=== PATIENT | female | born 1955 | race Caucasian/White ===

== ENCOUNTER 2021-04-20 11:09 | Outpatient (CLI) | payer MEDICARE, SELFPAY ==
--- NOTE | 2021-04-20 11:47 | ECG_ITS ---
Measurements Intervals [place] Rate: 81 P: 59 [place]: 208 QRS: 2 QRSD: 94 T: 51 QT: 343 QTc: 400 Interpretive Statements SINUS RHYTHM DELAYED PRECORDIAL R/S TRANSITION BORDERLINE ST-T WAVE ABNORMALITY- DIFFUSE LEADS BASELINE ARTIFACT- II, III BORDERLINE ECG Electronically Signed On 04-20-2021 13:27:58 CDT by Iam Dawn D.O.
[2021-04-20 11:49] LABS: Hematocrit 42.9 % (37.0-47.0); Hemoglobin 14.2 g/dL (12.0-15.0)
[2021-04-20 12:00] LABS: Albumin Level 4.6 g/dL (3.5-5.1); Creatine Kinase 85 U/L (30-135)
[2021-04-20 15:10] LABS: Estimated Glomerular Filt Rate > 60
== END 2021-04-20 11:10 | disposition home or self-care (01) ==
PROVIDERS: PCP Family Medicine; Visit Provider Orthopaedic Surgery
DX: M10.9 Gout, unspecified (principal); I10 Essential (primary) hypertension; E07.9 Disorder of thyroid, unspecified; M17.12 Unilateral primary osteoarthritis, left knee; Z01.818 Encounter for other preprocedural examination; R94.31 Abnormal electrocardiogram [ECG] [EKG]
CPT/HCPCS: 36415; 82040; 82550; 82565; 85014; 85018; 93005

== ENCOUNTER 2021-06-16 08:53 | Outpatient (CLI) | payer MEDICARE, SELFPAY ==
[2021-06-16 10:39] LABS: Basophils Absolute Auto 0.1 K/mm3 (0.0-0.1); Basophils Percent Auto 0.8 % (0.2-1.2); Eosinophils Absolute Auto 0.1 K/mm3 (0-0.3); Eosinophils Percent Auto 1.6 % (0-4.4); Hematocrit 46.1 % (37.0-47.0); Hemoglobin 15.4 g/dL (12.0-15.0); Immature Granulocyte Absolute 0.02 K/mm3 (0.00-0.031); Immature Granulocyte Percent A 0.3 % (0-0.5); Lymphocytes Absolute Auto 1.26 K/mm3 (0.9-3.2); Lymphocytes Percent Auto 17.3 % (18.3-44.2); Mean Corpuscular HGB Conc 33.4 g/dl (32-36); Mean Corpuscular Hemoglobin 30.1 pg (26-34); Mean Corpuscular Volume 90.2 fl (80-100); Mean Platelet Volume 10.9 fl (7.4-10.4); Monocytes Absolute Auto 0.6 K/mm3 (0.1-0.6); Monocytes Percent Auto 7.8 % (2.6-8.5); Neutrophils Absolute Auto 5.3 K/mm3 (1.3-6.7); Neutrophils Percent Auto 72.2 % (45.5-73.1); Platelet Count Result 221 k/mm3 (150-375); Red Blood Count 5.11 M/mm3 (4.2-5.4); Red Cell Distribution Width 12.2 % (11.5-14.5); White Blood Count 7.3 K/mm3 (4.5-10.0)
[2021-06-16 10:49] LABS: Albumin Level 4.9 g/dL (3.5-5.1)
[2021-06-16 10:51] LABS: Anion Gap 10 mmol/L (8-16); Blood Urea Nitrogen 29 mg/dL (7-17); Calcium 10.3 mg/dL (8.4-10.2); Carbon Dioxide 32 mmol/L (22-30); Chloride 100 mmol/L (98-107); Estimated Glomerular Filt Rate > 60; Glucose 98 mg/dL (65-110); Potassium 3.4 mmol/L (3.4-5.0); Sodium 142 mmol/L (137-145)
[2021-06-16 10:53] LABS: Hemoglobin A1C 5.4 % (<5.7)
[2021-06-16 10:54] LABS: Urine Cotinine NEGATIVE
== END 2021-06-16 08:54 | disposition home or self-care (01) ==
LOC: ANHSURGERY 08:57
PROVIDERS: Anesthesiology; PCP Family Medicine; Visit Provider Orthopaedic Surgery
DX: M17.12 Unilateral primary osteoarthritis, left knee (principal); Z01.818 Encounter for other preprocedural examination; Z51.81 Encounter for therapeutic drug level monitoring
CPT/HCPCS: 80048; 80307; 82040; 83036; 85025; 87081

== ENCOUNTER 2021-07-12 00:28 | Day surgery (SDC) | payer MEDICARE, SELFPAY ==
[2021-06-16 09:20] VITALS: BP 129/65; PULSE 72; RESP 18; TEMP 36.8; O2SAT 98; BMI 31.1
--- NOTE | 2021-07-11 16:18 | WPDANESPNB ---
Anes - Peripheral Nerve Block Date/Time: 07/11/21 16:18 I have discussed with the patient/family/POA the placement of a peripheral nerve block for post-operative pain management, including associated risks, benefits, complications, and side effects. Alternative methods of post-operative analgesia were detailed. Questions were solicited and answers provided to the satisfaction of the patient/family/POA. Time-Out: A pre-procedural Time-Out was completed immediately before starting the procedure and confirmed: Patient Identification, Site, Procedure, Patient Position and the Availability of Requisite Equipment. Clinical Indications: Acute post-operative pain management requested by the operative surgeon. Nerve Block Insertion Note Anes-nerve block: adductor canal left Patient position: supine Skin prep: chlorhexidine Needle: 22 gauge, stimulating, insulated echogenic needle. Needle length: 80 mm Technique: ultrasound Technique comment: in plane Injectate: bupivacaine 0.25% with epi 5 mcg/ml (30cc) Observations: tolerated well Complications: none Procedure start time:: 730 Procedure end time:: 735
--- NOTE | 2021-07-11 16:18 | WPDANESEPPF ---
Anes - Initial Pre Proc Eval Procedure: Operation Date: 07/12/21 07:30 Proposed Procedures p Left Total Knee Arthroplasty - Jc Marshall MD Date/Time: 07/11/21 16:18 Surgeon: Jc Marshall MD Pre Op Diagnosis: primary OA left knee Patient Data Age: 66 Gender: F Height: 1.68 m Weight: 87.6 kg Last Vital Signs Temp 36.8 C 06/16/21 09:20 Pulse 72 06/16/21 09:20 Resp 18 06/16/21 09:20 BP 129/65 06/16/21 09:20 Pulse Ox 98 06/16/21 09:20 Allergies Allergy/AdvReac Type Severity Reaction Status Date / Time povidone-iodine Allergy Mild RASH Verified 07/12/21 06:22 latex Allergy Unknown Rash Verified 07/12/21 06:22 Penicillins Allergy Unknown Rash Verified 07/12/21 06:22 pregabalin Allergy Unknown LEG Verified 07/12/21 06:22 SWELLING, RASH codeine Allergy Rash Verified 07/12/21 06:22 oxycodone AdvReac Unknown Nausea Verified 07/12/21 06:22 naproxen AdvReac Nausea Verified 07/12/21 06:22 IVORY BAR SOAP Allergy Rash Uncoded 07/12/21 06:22 HYDROCODONE BIT AdvReac Intermediate Nausea Uncoded 07/12/21 06:22 Home Medications Medication Instructions Recorded Confirmed Type allopurinol 300 mg tablet 600 mg PO DAILY 04/20/21 06/16/21 History cetirizine 10 mg tablet 10 mg PO DAILY 04/20/21 06/16/21 History furosemide 40 mg tablet 40 mg PO QAM 04/20/21 06/16/21 History metoprolol tartrate 100 mg tablet 100 mg PO QAM 04/20/21 07/12/21 History multivitamin 1 tablet PO DAILY 04/20/21 07/12/21 History omega 4-tfe-spj-fish oil 300 1 cap PO DAILY 04/20/21 07/12/21 History mg-1,000 mg capsule potassium chloride 20 mEq 40 meq PO BID 04/20/21 06/16/21 History tablet,extended release(part/cryst) triamterene 37.5 1 cap PO QAM 04/20/21 06/16/21 History mg-hydrochlorothiazide 25 mg capsule fenofibrate nanocrystallized 145 mg PO QAM 06/16/21 06/16/21 History levothyroxine 150 mcg PO HS 06/16/21 06/16/21 History liothyronine 5 mcg PO HS 06/16/21 06/16/21 History pravastatin 40 mg PO QAM 06/16/21 06/16/21 History semaglutide [Ozempic] 1 mg SUBCUT WEEKLY 06/16/21 06/16/21 History Patient hx anesthesia problems: none Family hx anesthesia problems: none Results Review: All pre-operative results and documents have been reviewed as part of the pre-operative evaluation. [facility] Past Medical History Medical History (Updated 07/11/21 @ 16:19 by Tuan Castillo MD) Blind Gout Hyperlipidemia Hypertension Macular degeneration Obesity Osteoarthritis of left knee CPPD Peripheral neuropathy Thyroid disease Surgical History Surgical History History of arthroscopy of left knee (~07/13/17) Partial Lateral Menisectomy History of carpal tunnel release (~06/2012) History of repair of rotator cuff (~03/2010) History of spinal fusion (~07/2012) Family History Family History Mother Hypertension Grandparent Hypertension Father Acute myocardial infarction, Onset Age: 62 Patient's father is Other Family history of arthritis Social History Social History Smoking status: Never smoker Alcohol intake: never Substance use: never Living arrangements: with family Additional living arrangements comments: DAUGHTER Spiritual care concerns: No Anes - Eval Final PreProcedure Day of Procedure 07/11/21 16:18 Patient weight: obese Heart: regular rate and rhythm Lungs: clear to auscultation and normal air movement Airway: Mallampati scale class II Neurological: alert and oriented Last oral intake: >/= 8 hours ASA classification: III Emergent: no Anesthetic plan: proceed Anesthesia type and monitoring: general LMA and ETT Results Review: All pre-operative results and documents have been reviewed as part of the pre-operative evaluation. Informed Consent: The patient's
[2021-07-12] VITALS (14 sets, daily range): BP systolic 95–152; BP diastolic 54–70; PULSE 67–99; RESP 12–20; TEMP 36.1–36.7; O2SAT 94–100; BMI 31.1; BMI 36.3
--- NOTE | ~2021-07-12 | XR_ITS ---
. EXAMINATION: XR knee LT 2V DATE: 07/12/2021 09:38 INDICATION: Postoperative evaluation following left total knee arthroplasty. TECHNIQUE: Anteroposterior and lateral views of the left knee were obtained. COMPARISON: None. FINDINGS: Left total knee arthroplasty with patellar resurfacing appears well seated and in near anatomic align ment. No fractures identified. Expected postoperative subcutaneous and intra-articular gas. IMPRESSION: 1. Left total knee arthroplasty, negative for postoperative purposes. Reviewed, dictated and finalized at location A.
[2021-07-12] MEDS: LACTATED RINGERS 1,000 ML 30 ML IV CONT ×2 (06:38→09:21)
[2021-07-12] MEDS: TRANEXAMIC ACID 1,000MG/ISO100 1,000 MG/100 ML BAG 200 MG IVPB (06:38)
[2021-07-12] MEDS: ACETAMINOPHEN 500 MG TABLET 1000 MG PO ×2 (06:39→20:41)
--- NOTE | 2021-07-12 07:22 | WPDHPUPDATE1 ---
History and Physical Update Update Date/Time: 07/12/21 07:22 History and Physical has been reviewed, including an updated exam of the patient. There are NO changes in the patient's condition. Risks, benefits, and alternatives have been discussed and questions answered. Patient agrees to proceed with procedure.
[2021-07-12] MEDS: ceFAZolin 2 GM/D5W 50 ML 2 GM/50 ML BAG IVPB ×3 (07:33→23:51)
[2021-07-12] MEDS: fentaNYL CITRATE INJ (*CRX) 100 MCG/2 ML VIAL 25 MCG IV PUSH ×2 (09:51→10:00)
--- NOTE | 2021-07-12 10:56 | ADMGEN ---
This patient, Deborah Castillo, was admitted to Medical Room 258-01 after surgery. Patient/family oriented to hospital policies and general routines including ID bracelet, bed and alarms, visiting hours, pain management, procedures, bathroom and other care routines, personal items, smoking policy, room service/diet, and visiting hours. Information on how to activate the Rapid Response Team has been discussed. Patient/Family are encouraged to report perceived risks to care and to ask questions if they do not understand what they are told or what they should do.
[2021-07-12] MEDS: SODIUM CHLORIDE 0.9% IV 1,000 ML 125 ML IV CONT (11:35)
[2021-07-12] MEDS: traMADol HCL (*CRX) 50 MG TABLET PO ×2 (12:26→16:46)
--- NOTE | 2021-07-12 13:25 | WPDCN ---
Assessment and Plan Assessment and plan (1) Primary osteoarthritis of left knee: Code(s): M17.12 - Unilateral primary osteoarthritis, left knee Status: Acute Assessment and Plan: Postoperative day 0, status post left knee arthroplasty. Wound care and pain control will be deferred to Dr. Marshall as well as DVT prophylaxis. Fall precautions have been initiated. PT/OT consulted. (2) Hypertension: Code(s): I10 - Essential (primary) hypertension Status: Chronic Assessment and Plan: Blood pressures were reviewed and they were a bit soft postoperatively but have improved. Resume antihypertensives in a.m. and monitor closely. (3) Dyslipidemia: Code(s): E78.5 - Hyperlipidemia, unspecified Status: Acute Assessment and Plan: Resume pravastatin and fenofibrate. (4) Hypothyroidism: Code(s): E03.9 - Hypothyroidism, unspecified Status: Acute Assessment and Plan: Continue levothyroxine and liothyronine. Additional Plan Thank you for allowing us to participate in this patient's care. Please do not hesitate to contact us with any questions. Supervising physician for this medical consultation is Dr. Liana Ruano. HPI Data of Consult Date/Time: 07/12/21 13:25 Requesting Physician: Jc Marshall MD Primary Care Provider: Robbie SimmonsElayne Consult Narrative Narrative: This is a 66-year-old female with degenerative joint disease of the left knee, hypertension, dyslipidemia, and hypothyroidism whom the hospitalist service has been consulted for management of her medical conditions postoperatively. She reports longstanding pain in the left knee which has not been amenable to conservative outpatient treatment and thus she elected for replacement today. Her surgery was performed under general anesthesia with regional block. No immediate complications were documented. Estimated blood loss was approximately 100 mL. Postoperatively her pain has been manageable. She has been up to the chair and ambulating with a walker with the therapist. She denies postoperative fever, chills, chest pain, shortness of breath, nausea, and vomiting. She also denies paresthesias, skin color, and temperature changes distal to the surgical site. On discharge the patient will be returning to the home that she shares with her daughter. Her sisters also coming up out as needed. Review of Systems Review of Systems: Twelve systems were reviewed. 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 No fever, chills, sweats. No recent cold or flu symptoms. She denies sick contacts. No history of venous thromboembolism. No history of diabetes. The patient was started on Ozempic a couple of months ago for weight loss and she has lost about 8 lb. Except as documented, all other systems were reviewed and are negative. 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 Family History Family History (Updated 07/12/21 @ 13:30 by Gina Yancey PA-C) Mother Hypertension Grandparent Hypertension Father Acute myocardial infarction, Onset Age: 62 Patient's father is Sibling Diabetes mellitus Other Family history of arthritis Social History Social History (Updated 07/12/21 @ 22:51 by Ryan Brito
--- NOTE | 2021-07-12 16:03 | P.OP_ITS ---
Procedure Note - Detailed Date of Procedure 07/12/21 Pre-op Diagnosis Primary OA left knee Post-op Diagnosis same Procedure Performed Left total knee arthroplasty. Surgeon Jc Marshall MD Sodium Chlorite Operator Sara Shah PA-C Anesthesia general and regional Description of Procedure The patient was brought to the operating room. A general anesthetic was administered. The leg was prepped and draped in the usual sterile fashion. The limb was elevated and the tourniquet inflated to 300 mmHg during initial exposure, and cementation. A longitudinal incision was created along the medial border of the patella and patellar tendon, and a trivector approach to the knee was performed. A minimal medial release was taken. The knee was then flexed. The osteophytes were carefully removed. The intramedullary guide was placed in the femoral canal. The distal femoral resection was then taken with the oscillating saw. The collateral ligaments were carefully protected. The tibia was carefully exposed. The jig was applied, and the proximal tibia was resected according to preoperative plan. The knee was balanced in extension. Appropriate releases were taken where needed. The anterior cruciate ligament and meniscal remnants were removed. The posterior cruciate ligament was preserved. The patella was measured. Patellar resection was carried out with the oscillating saw. The lug holes drilled. The femur was sized and rotation assessed using a combination of gap balancing, posterior referencing, and the AP axis. The 4 in 1 cutting block was used to finish the femoral cuts after equal gaps were assured. The osteophytes were carefully removed from the back of the knee. The knee was copiously irrigated with antibiotic solution periodically throughout the procedure. The meniscal remnants were removed. The spacer block was used to confirm equal flexion and extension gaps. Further releases were performed as needed. The tibia was sized and broached. The bony surfaces were prepared for cementing with pulsatile lavage. The real tibial and femoral and patellar components were cemented into position. Excess cement was carefully removed. Patellar tracking was carefully assessed. No additional releases were required. Dilute sterile Betadine soak performed for three minutes. Copious irrigation then performed. The wound was closed with #1 Vycril suture, #2 Quill suture, 0- Quill suture, and 2-0 Quill suture followed by Steri-Strips. A sterile bulky dressing was applied. Meticulous hemostasis was maintained throughout the procedure. The pain relieving mixture was injected into the periarticular tissues during the procedure. There were no complications. The patient was extubated and brought to the recovery room in stable condition after the application of sterile dressing with Rich bandage. Physician assistant coach, Sara Shah PA-C, required for surgery; including patient positioning, draping, tissue retraction, maintaining instrument position, cement removal, wound closure, and dressing placement. Implants [employer] Triathlon knee system, low profile cemented tibia size 4, cemented posterior cruciate retaining femoral component size 4 ,and an 11 mm cruciate retaining polyethylene insert. 35mm asymmetric all polyethylene patella component. Estimated Blood Loss -100.0 Packing No Pathology none sent Complications No immediate complications Condition stable Disposition PACU
[2021-07-12] MEDS: POTASSIUM CHLORIDE 20 MEQ TABLET.ER 40 MEQ PO (16:47)
[2021-07-12] MEDS: DOCUSATE SODIUM 100 MG CAPSULE PO (16:50)
[2021-07-12] MEDS: LIOTHYRONINE SODIUM 5 MCG TABLET PO (20:36)
[2021-07-12] MEDS: FAMOTIDINE 20 MG TABLET PO (20:36)
[2021-07-12] MEDS: CYCLOBENZAPRINE HCL 10 MG TABLET PO (20:41)
[2021-07-13 00:10] VITALS: BP 130/61; PULSE 76; RESP 18; TEMP 37.1; O2SAT 93
[2021-07-13 04:10] VITALS: BP 146/74; PULSE 88; RESP 16; TEMP 36.8; O2SAT 97
[2021-07-13] MEDS: CYCLOBENZAPRINE HCL 10 MG TABLET PO (04:55)
[2021-07-13] MEDS: LEVOTHYROXINE SODIUM 150 MCG TABLET PO (04:55)
[2021-07-13] MEDS: ACETAMINOPHEN 500 MG TABLET 1000 MG PO (04:56)
[2021-07-13 05:14] LABS: Basophils Percent Auto 0.2 % (0.2-1.2); Eosinophils Percent Auto 0.1 % (0-4.4); Hematocrit 37.9 % (37.0-47.0); Hemoglobin 12.2 g/dL (12.0-15.0); Immature Granulocyte Absolute 0.06 K/mm3 (0.00-0.031); Immature Granulocyte Percent A 0.6 % (0-0.5); Lymphocytes Absolute Auto 0.87 K/mm3 (0.9-3.2); Lymphocytes Percent Auto 8.6 % (18.3-44.2); Mean Corpuscular HGB Conc 32.2 g/dl (32-36); Mean Corpuscular Hemoglobin 29.7 pg (26-34); Mean Corpuscular Volume 92.2 fl (80-100); Mean Platelet Volume 10.5 fl (7.4-10.4); Monocytes Absolute Auto 0.9 K/mm3 (0.1-0.6); Monocytes Percent Auto 8.5 % (2.6-8.5); Neutrophils Absolute Auto 8.3 K/mm3 (1.3-6.7); Platelet Count Result 171 k/mm3 (150-375); Red Blood Count 4.11 M/mm3 (4.2-5.4); Red Cell Distribution Width 12.6 % (11.5-14.5); White Blood Count 10.2 K/mm3 (4.5-10.0)
[2021-07-13 05:33] LABS: Alanine Aminotransferase 50 U/L (4-35); Albumin Level 3.6 g/dL (3.5-5.1); Alkaline Phosphatase 46 U/L (38-126); Anion Gap 8 mmol/L (8-16); Aspartate Amino Transferase 33 U/L (14-36); Bilirubin,Total 0.5 mg/dL (0.2-1.3); Blood Urea Nitrogen 18 mg/dL (7-17); Calcium 9.1 mg/dL (8.4-10.2); Carbon Dioxide 27 mmol/L (22-30); Chloride 105 mmol/L (98-107); Estimated CRCL calculation 81 ml/min; Estimated Glomerular Filt Rate > 60; Glucose 115 mg/dL (65-110); Magnesium 2.1 mg/dL (1.6-2.3); Sodium 140 mmol/L (137-145)
[2021-07-13 06:29] LABS: Thyroid Stimulating Hormone Reflex 0.028 uIU/mL (0.465-4.68)
[2021-07-13] MEDS: FAMOTIDINE 20 MG TABLET PO (08:18)
[2021-07-13] MEDS: allopurinoL 300 MG TABLET 600 MG PO (08:18)
[2021-07-13] MEDS: FENOFIBRATE NANOCRYSTALLIZED 145 MG TABLET PO (08:19)
[2021-07-13] MEDS: FUROSEMIDE 40 MG TABLET PO (08:19)
[2021-07-13] MEDS: LORATADINE 10 MG TABLET PO (08:19)
[2021-07-13] MEDS: POTASSIUM CHLORIDE 20 MEQ TABLET.ER 40 MEQ PO (08:19)
[2021-07-13 08:20] VITALS: PULSE 79
[2021-07-13] MEDS: TRIAMTERENE 37.5 MG/HCTZ 25 MG (MAXZIDE) TABLET 1 TAB PO (08:20)
[2021-07-13] MEDS: PRAVASTATIN SODIUM 20 MG TABLET 40 MG PO (08:20)
[2021-07-13] MEDS: METOPROLOL TARTRATE 50 MG TAB 100 MG PO (08:20)
[2021-07-13 08:23] LABS: Free T4 Free Thyroxine Reflex 2.44 ng/dL (0.78-2.19)
[2021-07-13] MEDS: ceFAZolin 2 GM/D5W 50 ML 2 GM/50 ML BAG IVPB (08:23)
[2021-07-13] MEDS: oxyCODONE HCL (*CRX) 5 MG TAB IR PO (09:08)
--- NOTE | 2021-07-13 09:27 | WPDANESPN ---
Anes - Prog Note Post-Op Date/Time: 07/13/21 09:27 Cardiovascular status: normal Respiratory status: normal Airway patency: baseline Mental status: baseline Post-Op hydration status: normal Vital Signs: Last Vital Signs Temp 36.8 C 07/13/21 04:10 Pulse 79 07/13/21 08:20 Resp 16 07/13/21 04:10 BP 146/74 H 07/13/21 04:10 Pulse Ox 97 07/13/21 04:10 Pain Score (VAS): 0 I/O: Intake & Output 07/12/21 07/13/21 07/13/21 23:59 07:59 15:59 Intake Total 290 850 Output Total 200 Balance 290 650 Laboratory Tests 07/13/21 04:45 07/13/21 04:45 07/13/21 07/13/21 07/13/21 04:45 04:45 04:45 WBC 10.2 H RBC 4.11 L Hgb 12.2 D Hct 37.9 MCV 92.2 MCH 29.7 MCHC 32.2 RDW 12.6 Plt Count 171 MPV 10.5 H Immature Gran % (Auto) 0.6 H Neut % (Auto) 82.0 H Lymph % (Auto) 8.6 L [place] % (Auto) 8.5 Eos % (Auto) 0.1 Baso % (Auto) 0.2 Lymph # (Auto) 0.87 L [place] # (Auto) 0.9 H Eos # (Auto) 0.0 Baso # (Auto) 0.0 Abs Immat Gran (auto) 0.06 H Absolute Neuts (auto) 8.3 H Absolute Nucleated RBC 0.0 Nucleated RBC % 0.0 Sodium 140 Potassium 4.0 Chloride 105 Carbon Dioxide 27 Anion Gap 8 BUN 18 H D Creatinine 0.70 Estim Creat Clear Calc 81 Estimated GFR > 60 Glucose 115 H Calcium 9.1 Magnesium 2.1 Total Bilirubin 0.5 Direct Bilirubin 0.0 AST 33 ALT 50 H Alkaline Phosphatase 46 Total Protein 6.0 L Albumin 3.6 TSH (Reflex) 0.028 L Free T4 Total T3 07/13/21 07/13/21 04:45 04:45 WBC RBC Hgb Hct MCV MCH MCHC RDW Plt Count MPV Immature Gran % (Auto) Neut % (Auto) Lymph % (Auto) [place] % (Auto) Eos % (Auto) Baso % (Auto) Lymph # (Auto) [place] # (Auto) Eos # (Auto) Baso # (Auto) Abs Immat Gran (auto) Absolute Neuts (auto) Absolute Nucleated RBC Nucleated RBC % Sodium Potassium Chloride Carbon Dioxide Anion Gap BUN Creatinine Estim Creat Clear Calc Estimated GFR Glucose Calcium Magnesium Total Bilirubin Direct Bilirubin AST ALT Alkaline Phosphatase Total Protein Albumin TSH (Reflex) Free T4 2.44 H Total T3 Pending Post-procedural complaints: none Patient Feedback: Patient satisfied with anesthetic care.
[2021-07-13 10:00] VITALS: BP 128/56; PULSE 70; RESP 18; TEMP 36.8; O2SAT 98
[2021-07-13 11:58] LABS: Total Triiodothyronine (T3) 1.35 NG/ML (0.97-1.69)
[2021-07-13 14:23] VITALS: BP 140/72; PULSE 80; RESP 18; TEMP 36.9; O2SAT 95
--- NOTE | 2021-07-13 14:51 | PM.IMPN ---
Progress Note: A&P Assessment and Plan (1) Primary localized osteoarthritis of both knees: Code(s): M17.0 - Bilateral primary osteoarthritis of knee Status: Acute (2) History of arthroplasty of left knee: Code(s): Z96.652 - Presence of left artificial knee joint Status: Acute (3) Hypertension: Qualifiers: Hypertension type: unspecified Qualified Code(s): I10 - Essential (primary) hypertension Code(s): I10 - Essential (primary) hypertension Status: Chronic (4) Hypothyroidism: Qualifiers: Hypothyroidism type: unspecified Qualified Code(s): E03.9 - Hypothyroidism, unspecified Code(s): E03.9 - Hypothyroidism, unspecified Status: Acute (5) Dyslipidemia: Code(s): E78.5 - Hyperlipidemia, unspecified Status: Acute (6) Peripheral neuropathy: Qualifiers: Peripheral neuropathy type: polyneuropathy, unspecified Qualified Code(s): G62.9 - Polyneuropathy, unspecified Code(s): G62.9 - Polyneuropathy, unspecified Status: Acute (7) Obesity: Qualifiers: Obesity type: unspecified obesity type Obesity classification: adult class 2 (BMI 35 - 39.9) Body mass index: BMI 36.0-36.9 Serious obesity comorbidity presence: without serious comorbidity Qualified Code(s): E66.9 - Obesity, unspecified; Z68.36 - Body mass index [BMI] 36.0-36.9, adult Code(s): E66.9 - Obesity, unspecified Status: Acute (8) Factitious hyperthyroidism: Qualifiers: Thyrotoxic crisis or storm presence: without thyrotoxic crisis or storm Qualified Code(s): E05.40 - Thyrotoxicosis factitia without thyrotoxic crisis or storm Code(s): E05.40 - Thyrotoxicosis factitia without thyrotoxic crisis or storm Status: Acute Additional Plan Status post left knee arthroplasty. The DVT prophylaxis at the discretion of DVT To have fictitious hyperthyroidism given decreased TSH and elevated T4 levels. T3 levels are within normal limits. Patient says that she discuss this with her PCP when she was in season. Time Spent With Patient Time with patient: 15 - 25 minutes Subjective Date/time seen: 07/13/21 14:51 Interval history: 66-year-old female with past medical history significant for hypertension, hyperlipidemia, hypothyroidism and osteoarthritis presented status post total left knee arthroplasty. Medicine has been consulted for management of medical conditions. It is noted that she has a TSH level of 0.028 and in FT4 of 2.44. This may require changing of the dosage of levothyroxine that the patient has on. I discussed this concern with the patient she said that she will follow her with her primary physician regarding this. Review of Systems Review of Systems: A 10 point review of system was conducted was otherwise negative Exam Narrative: General: Well-developed female sitting up in bed in no distress. Weight: 102 kg. BMI: 36.3. HEENT: Patient is legally blind. Sclerae anicteric. Oral mucosa moist. Neck: Supple. Respiratory: Lungs are clear to auscultation bilaterally. Cardiovascular: Regular rate and rhythm with S1-S2. Gastrointestinal: Abdomen is soft, nontender, and nondistended with positive bowel sounds. Skin: Warm and dry. No rash or lesions on limited exam. Extremities: No cyanosis or clubbing. Trace yash ankle edema bilaterally, left greater than right. Radial and pedal pulses intact. Musculoskeletal: Left knee is surgically dressed. A cooling pad is in place. She is neurovascular intact distal to the surgical site. Neurological: Alert. Cranial nerves 2-12 grossly intact. No gross focal deficits to casual conversation. Psychiatric: Pleasant and cooperative with normal mood and affect. Judgment and insight intact. Objective Data Vital Signs Vital Signs: Vital Signs - 24 hr 07/12/21 18:00 07/12/21 20:10 07/13/21 00:10 Temperature 97.1 F L 98.1 F 98.7 F Pulse Rate 93 99 76 Respiratory Rate
--- NOTE | 2021-07-13 15:18 | PM.DS ---
DS: Admitting Diagnosis Discharge Date 07/13/21 Admitting Diagnosis OA knee Left DS: Discharge Diagnosis Discharge Diagnosis (1) Orthopedic aftercare for joint replacement: Code(s): Z47.1 - Aftercare following joint replacement surgery Status: Acute (2) Status post total left knee replacement: Code(s): Z96.652 - Presence of left artificial knee joint Status: Acute Assessment and Plan: Postop day 1: Left total knee arthroplasty. Patient tolerated procedure well. No complications. Pain manageable with pain medication. No numbness or tingling. We had a lengthy discussion regarding postoperative wound care, limitations, expectations, and exercises. Patient shows good understanding. He has had initial physical therapy and is tolerating it well. DVT prophylaxis: 81 mg baby aspirin b.i.d. for 14 days. Pain medication: Percocet. Ibuprofen. Patient has followup appointment with Dr. Marshall in 3 weeks. Patient is blind and will need home health. DS: Summary Hospital Course Reason for hospitalization: Total knee arthroplasty Hospital Course: Patient tolerated procedure well. Has had initial PT/OT. Status at Discharge Functional status at discharge: uses cane/walker Overall status at discharge: patient is progressing back to baseline Time Spent with Patient Time attestation: Total time spent providing and/or coordinating discharge services: Exam Narrative: 66-year-old overweight female. Resting comfortably in bed. Alert and oriented x3. No acute distress. Wearing compression socks bilaterally. Dressing intact without drainage. Moderate swelling. No ecchymosis. No erythema. No hematoma. Range of motion limited due to pain. Calf nontender. Neurologic status intact. No varicosities. Distal pulses palpable. DS: Data Data Completed and Pending Labs on day of discharge: Labs from last 24 hours 07/13/21 07/13/21 07/13/21 04:45 04:45 04:45 WBC RBC Hgb Hct MCV MCH MCHC RDW Plt Count MPV Immature Gran % (Auto) Neut % (Auto) Lymph % (Auto) [place] % (Auto) Eos % (Auto) Baso % (Auto) Lymph # (Auto) [place] # (Auto) Eos # (Auto) Baso # (Auto) Abs Immat Gran (auto) Absolute Neuts (auto) Absolute Nucleated RBC Nucleated RBC % Sodium Potassium Chloride Carbon Dioxide Anion Gap BUN Creatinine Estim Creat Clear Calc Estimated GFR Glucose Calcium Magnesium Total Bilirubin Direct Bilirubin AST ALT Alkaline Phosphatase Total Protein Albumin TSH (Reflex) 0.028 L Free T4 2.44 H Total T3 1.35 07/13/21 07/13/21 04:45 04:45 WBC 10.2 H RBC 4.11 L Hgb 12.2 D Hct 37.9 MCV 92.2 MCH 29.7 MCHC 32.2 RDW 12.6 Plt Count 171 MPV 10.5 H Immature Gran % (Auto) 0.6 H Neut % (Auto) 82.0 H Lymph % (Auto) 8.6 L [place] % (Auto) 8.5 Eos % (Auto) 0.1 Baso % (Auto) 0.2 Lymph # (Auto) 0.87 L [place] # (Auto) 0.9 H Eos # (Auto) 0.0 Baso # (Auto) 0.0 Abs Immat Gran (auto) 0.06 H Absolute Neuts (auto) 8.3 H Absolute Nucleated RBC 0.0 Nucleated RBC % 0.0 Sodium 140 Potassium 4.0 Chloride 105 Carbon Dioxide 27 Anion Gap 8 BUN 18 H D Creatinine 0.70 Estim Creat Clear Calc 81 Estimated GFR > 60 Glucose 115 H Calcium 9.1 Magnesium 2.1 Total Bilirubin 0.5 Direct Bilirubin 0.0 AST 33 ALT 50 H Alkaline Phosphatase 46 Total Protein 6.0 L Albumin 3.6 TSH (Reflex) Free T4 Total T3 Discharge Plan Discharge Patient Disposition: Home Health Service Discharge Instructions: Per Care Coordination. Patient to have [facility] for RN/PT/OT eval and treat [phone]. RN please fax discharge instructions to [phone]. Ortho instructions: See green instruction sheet Patient Instructions: Antibiotic Form Stand Alone Form
== END 2021-07-13 15:44 | disposition home health service (06) ==
LOC: ANHSURGERY 09:54 → ANH2MED 10:29
PROVIDERS: Internal Medicine; Physician Assistant; Physician Assistant Surgical; PCP Family Medicine; Visit Provider Orthopaedic Surgery
PROC: (CPT 27447; principal; 2021-07-12 07:30)
DX: M17.12 Unilateral primary osteoarthritis, left knee (principal); M10.9 Gout, unspecified; G89.18 Other acute postprocedural pain; I10 Essential (primary) hypertension; E07.9 Disorder of thyroid, unspecified; M11.262 Other chondrocalcinosis, left knee; E03.9 Hypothyroidism, unspecified; G62.9 Polyneuropathy, unspecified; E66.9 Obesity, unspecified; Z68.36 Body mass index [BMI] 36.0-36.9, adult; E78.5 Hyperlipidemia, unspecified; E05.40 Thyrotoxicosis factitia without thyrotoxic crisis or storm
CPT/HCPCS: 27447; 64447; 36415; 73560; 80048; 80076; 80307; 82040; 83036; 83735; 84439; 84443; 84480; 85025; 86850; 86900; 86901; 87081; 97110; 97116; 97161; 97165; 97530; 97535; A9270; C1713; C1776; J0171; J0690; J1100; J2250; J2370; J2405; J2704; J2795; J3010; J7030; J7120

== ENCOUNTER 2022-06-19 15:09 | Emergency (ER) | payer MEDICARE, SELFPAY ==
--- NOTE | ~2022-06-19 | XR_ITS ---
EXAMINATION: XR hand LT min 3V DATE: 06/19/2022 15:56 INDICATION: Left hand pain post fall TECHNIQUE: Posteroanterior, oblique and lateral views of the left hand were obtained. COMPARISON: None. FINDINGS: A couple millimeter ulnar positive variance. Otherwise normal alignment of the left hand. No fracture . There is cystic change at the ulnar side of the proximal lunate suggestive of ulnocarpal impaction. Mild osteoarthritis at the wrist, first carpal metacarpal and multiple interphalangeal joints. Soft tissues are unremarkable. IMPRESSION: 1. No acute osseous abnormality. 2. A couple millimeter ulnar positive variance with cystic change at the ulnar side of the proximal l unate which suggests ulnocarpal impaction. 3. Mild polyarticular osteoarthritis. Reviewed, dictated and finalized at location B. IMPRESSION: 1. No acute osseous abnormality. 2. A couple millimeter ulnar positive variance with cystic change at the ulnar side of the proximal lunate which suggests ulnocarpal impaction. 3. Mild polyarticular osteoarthritis.
--- NOTE | 2022-06-19 15:14 | ED.UPPEXIN ---
HPI - Extremity Injury (Upper) General Chief Complaint: Extremity Injury, Upper Stated Complaint: Left hand /wrist injury Time Seen by Provider: 06/19/22 15:14 Source: patient and RN notes reviewed History of Present Illness HPI narrative: Patient is a 67-year-old female who presents the urgent care with complaints of left wrist pain after a fall on Sunday. Patient is legally blind and states that she tripped over her own feet falling onto her tile floor. Patient is right-hand dominant. States she caught herself with her left hand. Patient denies any swelling, bruising. States that the wrist is painful with movement. Patient has been taking Advil with good pain relief. Patient has fractured this left wrist in the past. No other acute complaints. No acute distress noted. Patient aware of the plan of care. Some parts of this dictation were generated by voice recognition software and may contain typographical and/or grammatical inaccuracies. Related Data Home Medications Medication Instructions Recorded Confirmed allopurinol 300 mg tablet 600 mg PO DAILY 04/20/21 06/19/22 cetirizine 10 mg tablet (Zyrtec) 10 mg PO DAILY 04/20/21 06/19/22 furosemide 40 mg tablet 40 mg PO QAM 04/20/21 06/19/22 metoprolol tartrate 100 mg tablet 100 mg PO QAM 04/20/21 06/19/22 multivitamin 1 tablet PO DAILY 04/20/21 06/19/22 omega [id number]-fish oil 300 1 cap PO DAILY 04/20/21 06/19/22 mg-1,000 mg capsule (Fish Oil) potassium chloride 20 mEq 40 meq PO BID 04/20/21 06/19/22 tablet,extended release(part/cryst) (Klor-Con M) triamterene 37.5 1 cap PO QAM 04/20/21 06/19/22 mg-hydrochlorothiazide 25 mg capsule fenofibrate nanocrystallized 145 145 mg PO QAM 06/16/21 06/19/22 mg tablet levothyroxine 150 mcg tablet 125 mcg PO HS 06/16/21 06/19/22 liothyronine 5 mcg tablet 5 mcg PO HS 06/16/21 06/19/22 pravastatin 40 mg tablet 40 mg PO QAM 06/16/21 06/19/22 semaglutide 1 mg/dose (4 mg/3 mL) 1 mg subcut WEEKLY 06/16/21 11/02/21 subcutaneous pen injector (Ozempic) Allergies Allergy/AdvReac Type Severity Reaction Status Date / Time povidone-iodine Allergy Mild RASH Verified 06/19/22 15:25 latex Allergy Unknown Rash Verified 06/19/22 15:25 Penicillins Allergy Unknown Rash Verified 06/19/22 15:25 pregabalin Allergy Unknown LEG Verified 06/19/22 15:25 SWELLING, RASH codeine Allergy Rash Verified 06/19/22 15:25 hydrocodone AdvReac Intermediate Nausea Verified 06/19/22 15:25 oxycodone AdvReac Unknown Nausea Verified 06/19/22 15:25 naproxen AdvReac Nausea Verified 06/19/22 15:25 nut - unspecified AdvReac Nausea and Verified 06/19/22 15:25 Vomiting IVORY BAR SOAP Allergy Rash Uncoded 06/19/22 15:25 Review of Systems Review of Systems: CONSTITUTIONAL: Denies fever, chills, or sweats. EYES: Denies visual changes, redness, or discharge. ENT: Denies rhinorrhea, congestion, sore throat, or otalgia. CARDIOVASCULAR: Denies chest pain, palpitations, or edema. RESPIRATORY: Denies cough or dyspnea. GASTROINTESTINAL: Denies abdominal pain, nausea, vomiting, or diarrhea. GENITOURINARY: Denies dysuria or hematuria. SKIN: Denies rash or itching. MUSCULOSKELETAL: Reports of left wrist pain NEUROLOGIC: Denies headache, numbness, or weakness. All other systems reviewed are negative, except as documented in HPI. 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 Family History Family History (Reviewed 11/02/21 @ 10:06 by Sara Shah
[2022-06-19 15:16] VITALS: BP 121/65; PULSE 78; RESP 16; TEMP 36.8; O2SAT 99
== END 2022-06-19 16:20 | disposition home or self-care (01) ==
PROVIDERS: Emergency Provider Nurse Practitioner Family
DX: M25.532 Pain in left wrist (principal); H54.8 Legal blindness, as defined in USA; E78.5 Hyperlipidemia, unspecified; M10.9 Gout, unspecified; I10 Essential (primary) hypertension; E03.9 Hypothyroidism, unspecified; H35.30 Unspecified macular degeneration; G62.9 Polyneuropathy, unspecified
CPT/HCPCS: 73130; 99213; G0463